=== PATIENT | female | born 1975 | race Caucasian/White ===

== ENCOUNTER 2023-12-07 20:35 | Emergency (ER) | payer BC, SELFPAY ==
[2023-12-07 20:40] VITALS: BP 165/016
--- NOTE | 2023-12-07 23:02 | ED.GENMED ---
History of Present Illness
General
Chief Complaint: Fall
Source: patient
Time Seen by Provider: 12/07/23 22:00
History of Present Illness
History of Present Illness:
48-year-old female presenting to the emergency department for evaluation after she excellently fell backwards yesterday stepping off of a curb, struck the back of her head, but was very dazed afterwards and today has vomited twice associated with
persistent headache, brain fog and difficulty concentrating. Patient states she believes she likely has a concussion but with the vomiting was concerned for possible intracranial bleeding so decided to come to the ER for further evaluation. Denies
use of anticoagulants. States he has a usual history of migraines. Took some Advil prior to arrival. No other injuries or concerns.
Past History
Past History
ED Past Medical History: Hypothyroidism and Other (Chronic low back pain, activity induced asthma)
ED Past Surgical History: Appendectomy, Cholecystectomy, and Tonsilectomy
Social History
Tobacco: Non-smoker
Alcohol: Occasional
Drug: None
Personal:
Living: with family
Family History
Family History: Unable to obtain
Review of Systems
Review of Systems
All Other Systems: ROS reviewed and negative except as documented in HPI and ROS
Phy Exam
Physical Exam
Physical Exam:
GENERAL: Alert , in no apparent distress
EYE: conjunctiva clear, pupils 3 mm bilateral
Head: small right occipital contusion
NECK: Supple, no midline tenderness,
ENT: mmm.
LUNGS: no acute respiratory distress
NEUROLOGICAL: Alert and oriented
SKIN: Warm and dry, skin intact.
MUSCULOSKELETAL: well perfused.
PSYCH: Normal and appropriate interaction.
Scores
Heart Failure Risk
Heart Failure Risk Score: Not Applicable
Heart Score for Chest Pain Patients
STEMI patient?: Not applicable
Withdrawal Assessment of Alcohol
Withdrawal Assessment Completed?: Not applicable
Course
Orders/Labs/Results
Orders:
Orders
12/07/23 21:[address] [CT Head W/o Iv Contrast] Urgent
Comment:
Reason For Exam: fall
12/07/23 23:51
Ibuprofen [Motrin] 600 mg PO NOW STA
Vital Signs
Initial and Last Documented VS:
Initial Vital Signs
Temp Pulse Resp BP Pulse Ox
98.2 F 92 22 165/016 98
12/07/23 20:40 12/07/23 20:40 12/07/23 20:40 12/07/23 20:40 12/07/23 20:40
Last Documented Vital Signs
Temp Pulse Resp BP Pulse Ox
98.2 F 83 22 151/93 98
12/07/23 20:40 12/07/23 23:55 12/07/23 20:40 12/07/23 23:55 12/07/23 20:40
MDM/Problems Addressed
Differential Diagnosis Includes:
Contusion, concussion, intracranial bleeding, calvarial fracture
MDM/Problems Addressed:
48-year-old female presenting to the emergency department for evaluation after excellently falling off a curb, striking her head on the ground, persistent headache and 2 episodes of vomiting since. No LOC, no thinners. Due to the vomiting will
obtain CT of the head to rule out intracranial bleeding. Patient declining anything for headache at this time. No acute distress.
*Radiology
Radiology exam reviewed: radiology read reviewed
*Pulse Oximetry
Patient hypoxic: no
*Critical Care Note
Total Time (30-74mins, 75-104mins- exclusive of procedures): Not Applicable
Patient Management
Escalation/DeEscalation of care consider admission/obs:
Per vision radiology patient's head CT is within normal limits. There is a hematoma noted which was also seen on physical exam. Concussion management discussed. Stable for discharge home and aware of return precautions.
ED Attending Note
-
Portions of this chart may have been created with voice recognition software.� Occasional wrong word or��sound alike� substitutions may have occurred due to the inherent limitations of voice recognition software.
Discharge Plan
Departure
Patient Disposition: Home (Routine Discharge)
Date of Disposition: 12/08/23
Time of Disposition: 00:13
Patient with high blood pressure during this ER visit?: Yes
Discharge Problem:
Concussion
Instructions: Concussion, Adult (DC)
Prescriptions:
No Action
Neurontin
1 tab PO HS
Patient Comments:
doesn't know dose
Imitrex
1 tab PO DAILY PRN (Reason: headache)
Patient Comments:
unsure of dose
amoxicillin-pot clavulanate 1 TABLET tablet
1 tab PO Q12 Qty: 10 0RF
prednisone 10 mg Tablet
See Rx Instructions .ROUTE .COMPLEX Qty: 30 0RF
Rx Instructions:
Take By Mouth:
40 mg daily x3 days, 30 mg daily x3 days,
20 mg daily x3 days, 10 mg daily x3 days.
albuterol sulfate 2.5 mg /3 mL (0.083 %) solution for nebulization
2.5 mg inhalation Q6H PRN (Reason: shortness of breath or wheezing) Qty: 90 0RF
Referrals:
Reuben Bell DO [Family Provider] -
Interventions
Interventions:
*Risk Screen - Suicide Last Done: 12/07/23 20:40
*Neglect/Abuse Screening Last Done: 12/07/23 20:40
ED-Musculoskeletal Assessment Last Done: 12/07/23 22:49
ED- Neurological Assessment Last Done: 12/07/23 22:49
ED-Skin Assessment Last Done: 12/07/23 22:49
Discharge Date and Time
Print Language: LIBYAN
[2023-12-07 23:55] VITALS: BP 151/93
[2023-12-08] MEDS: MOTRIN 600 MG PO
[2023-12-08 00:24] VITALS: BP 151/93
== END 2023-12-08 00:26 | disposition home or self-care (01) ==
LOC: EMR 20:35
PROVIDERS: EMERGENCY PHYSICIAN Emergency Medicine; FAMILY PHYSICIAN Family Medicine
DX: S06.0X0A Concussion without loss of consciousness, initial encounter (principal); S00.03XA Contusion of scalp, initial encounter; R11.10 Vomiting, unspecified; W10.1XXA Fall (on)(from) sidewalk curb, initial encounter; R03.0 Elevated blood-pressure reading, without diagnosis of hypertension; M54.50 Low back pain, unspecified; J45.909 Unspecified asthma, uncomplicated; E03.9 Hypothyroidism, unspecified; G89.29 Other chronic pain; Z90.49 Acquired absence of other specified parts of digestive tract
CPT/HCPCS: 99284; 70450

== ENCOUNTER → 2024-03-14 14:30 | Outpatient (REF) | payer BC, SELFPAY | LOC: UCDH 14:30 | PROVIDERS: ATTENDING PHYSICIAN Physician Assistant Medical; FAMILY PHYSICIAN Family Medicine | DX: M25.572 Pain in left ankle and joints of left foot (principal) | CPT/HCPCS: 73610 ==

== ENCOUNTER → 2024-11-18 12:53 | Outpatient (REF) | payer BC, SELFPAY | LOC: HWRCS 12:53 | PROVIDERS: ATTENDING PHYSICIAN Nurse Practitioner Family | DX: I31.8 Other specified diseases of pericardium (principal); R06.02 Shortness of breath | CPT/HCPCS: 93306 ==

== ENCOUNTER → 2024-12-15 18:59 | Outpatient (REF) | payer BC, SELFPAY | LOC: WDC 18:59 | PROVIDERS: ATTENDING PHYSICIAN Obstetrics & Gynecology; FAMILY PHYSICIAN Nurse Practitioner Family | DX: Z12.31 Encounter for screening mammogram for malignant neoplasm of breast (principal) | CPT/HCPCS: 77063; 77067 ==